=== PATIENT | male | born 1955 | race Caucasian/White ===

== ENCOUNTER → 2019-07-11 12:58 | Outpatient (CLI) | payer MEDICARE, SELFPAY ==
[2019-07-11 14:18] LABS: Alanine Aminotransferase 47 IU/L (<50); Albumin 4.9 g/dL (3.5-5.0); Albumin Globulin Ratio 1.4 (1.0-2.8); Alkaline Phosphatase 61 U/L (38-126); Aspartate Aminotransferase 37 IU/L (17-59); Bilirubin Total 0.7 mg/dL (0.2-1.3); Blood Urea Nitrogen 15 mg/dL (9-20); Calcium 9.7 mg/dL (8.4-10.2); Carbon Dioxide 27 mmol/L (22-32); Chloride 103 mmol/L (98-107); Cholesterol 216 mg/dL (140-199); Estimated Glomerular Filt Rate > 60.0 mL/min (>60); Globulin 3.4 g/dL (1.7-4.1); Glucose 102 mg/dL (80-110); HDL Cholesterol 47 mg/dL (40-60); HEMOLYSIS < 15 (0-50); LDL Cholesterol Calculated 153 mg/dL (<100); Potassium 4.8 mmol/L (3.4-5.1); Sodium 139 mmol/L (137-145); Total Protein 8.3 g/dL (6.3-8.2); Triglycerides 80 mg/dL (35-150)
[2019-07-11 14:39] LABS: Add Manual Diff / Slide Review NO; Basophils Absolute Auto 0 /uL (0-100); Basophils Percent Auto 0.8 % (0-2); Eosinophils Absolute Auto 100 /uL (0-450); Eosinophils Percent Auto 2.3 % (2-4); Lymphocytes Absolute Auto 1300 /uL (1100-4500); Lymphocytes Percent Auto 26.5 % (25-40); Monocytes Absolute Auto 500 /uL (0-900); Monocytes Percent Auto 10.1 % (3-14); Neutrophils Absolute Auto 3000 /uL (1500-7000); Neutrophils Percent Auto 60.3 % (50-75); Platelet Count 150 X10^3/uL (150-400); White Blood Cell Count 5.1 X10^3/uL (4.5-11.0)
[2019-07-11 14:40] LABS: Hematocrit 47.7 % (41-53); Hemoglobin 16.6 g/dL (13.5-17.5); Mean Corpuscular HGB Conc 34.9 % (30-36); Mean Corpuscular Hemoglobin 32.4 PG (26-34); Red Blood Cell Count 5.13 X10^6/uL (4.5-5.9); Red Cell Distribution Width 12.8 % (11.6-14.8)
[2019-07-11 14:49] LABS: Prostate Specific Antigen 1.26 ng/mL (0.10-4.00)
[2019-07-11 16:32] LABS: Vitamin D 25 Hydroxy (D3) 38.1 ng/mL (30.0-100.0)
== END ==
PROVIDERS: Family Provider Registered Nurse Orthopedic; PCP Family Medicine; Referring Provider Family Medicine; Visit Provider Family Medicine
DX: Z12.11 Encounter for screening for malignant neoplasm of colon (principal); Z12.5 Encounter for screening for malignant neoplasm of prostate; Z13.220 Encounter for screening for lipoid disorders; Z13.29 Encounter for screening for other suspected endocrine disorder; E55.9 Vitamin D deficiency, unspecified
CPT/HCPCS: 36415; 80053; 80061; 82306; 84153; 84443; 85025

== ENCOUNTER → 2019-07-17 12:34 | Outpatient (ROUT) | payer MEDICARE, SELFPAY ==
[2019-07-18 09:36] LABS: Fecal Immunochemical Test Positive (Negative)
== END ==
PROVIDERS: Family Provider Registered Nurse Orthopedic; PCP Family Medicine; Visit Provider Family Medicine
DX: Z12.11 Encounter for screening for malignant neoplasm of colon (principal); Z12.5 Encounter for screening for malignant neoplasm of prostate; Z13.220 Encounter for screening for lipoid disorders; Z13.29 Encounter for screening for other suspected endocrine disorder; E55.9 Vitamin D deficiency, unspecified
CPT/HCPCS: 82274

== ENCOUNTER → 2022-02-09 15:24 | Outpatient (CLI) | payer MEDICARE, SELFPAY ==
[2022-02-09 16:30] LABS: COVID19 -Nasal RAPID Negative (Negative)
== END ==
PROVIDERS: Family Provider Registered Nurse Orthopedic; PCP Family Medicine; Visit Provider Surgery
DX: Z01.812 Encounter for preprocedural laboratory examination (principal); Z20.822 Contact with and (suspected) exposure to COVID-19
CPT/HCPCS: 87635; C9803

== ENCOUNTER 2022-02-10 08:11 | Day surgery (SDC) | payer MEDICARE, SELFPAY ==
[2022-02-10] VITALS (7 sets, daily range): BP systolic 101–180; BP diastolic 61–93; PULSE 66–97; RESP 13–17; TEMP 36.1–36.7; O2SAT 95–99; BMI 28.8
--- NOTE | 2022-02-10 | PATH_ITS ---
[facility] Accession Number: [id number] No. of containers..03 Tissue . 01 Material submitted: . PART A: sigmoid colon - 25 CM SIGMOID POLYP PART B: colon - 60CM COLON POLYP PART C: colon - MID-TRANSVERSE COLON POLYP . 01 Diagnosis: A. Sigmoid Colon Polyp at 25 cm, Biopsy: Tubular adenoma. . B. Colon Polyp at 60 cm, Biopsy: Tubular adenoma. . C. Mid Transverse Colon Polyp, Biopsy: Tubular adenoma. MR 02/17/2022 1106 Local . 01 Electronically signed: . Kendal Mcguire MD, Pathologist NPI- [id number] . 01 Gross description: . Part A: 25 CM SIGMOID POLYP: Received in formalin are 3 fragment(s) of beauchamp, soft tissue measuring 0.4 x 0.3 x 0.3 cm to 0.7 x 0.7 x 0.6 cm submitted entirely in 1 cassette(s) Part B: 60CM COLON POLYP: Received in formalin are 2 fragment(s) of beauchamp, soft tissue measuring 0.5 x 0.4 x 0.4 cm to 0.7 x 0.6 x 0.6 cm submitted entirely in 1 cassette(s) Part C: MID-TRANSVERSE COLON POLYP: Received in formalin are 3 fragment(s) of beauchamp, soft tissue measuring 0.1 x 0.1 x 0.1 cm to 0.3 x 0.2 x 0.2 cm submitted entirely in 1 cassette(s) /ANANT 02/15/2022 2210 Local . 01 Pathologist provided ICD-10: D12.5, D12.3, D12.6 . 01 CPT . 091039, [id number], [id number] Specimen Comment: A courtesy copy of this report has been sent to [phone], [phone] Specimen Comment: [id number] Performed at: 01 [facility] [address] [facility] [address] [facility], [place], [place] [id number] MD Franklin Zuñiga MD Phone: [phone]
[2022-02-10] MEDS: LACTATED RINGERS 1,000 ML 84 ML IV (08:44)
--- NOTE | 2022-02-10 09:18 | PM.HP.1 ---
History of Present Illness History of Present Illness Date Patient Seen: 02/10/22 Time Patient Seen: 09:18 Chief complaint: SCREENING COLONOSCOPY Narrative: h/o colon polyps, last scope over 10 years ago. No symptoms. Patient History Medical History Chronic pain syndrome (Unknown) Dyslipidemia (Unknown) Erectile dysfunction (Unknown) Foot joint stiffness, bilateral Foot pain, left (Unknown) H/O methicillin resistant Staphylococcus aureus (Unknown) Positive FIT (fecal immunochemical test) Segmental and somatic dysfunction of lower extremity Vitamin D deficiency Family & Social History Social History: household members significant other Tobacco & Substance use: Tobacco type cigarettes Smoking Status Current some day smoker alcohol intake current alcohol intake frequency 0-2 drinks per day Substance Use Type marijuana Meds Home Medications and Allergies Home Medications Medication Instructions Recorded Confirmed Type Handicap placard #1 ea 07/11/19 08/08/19 Rx diazepam 5 mg tablet (Valium) 5 mg PO BID PRN anxiety #30 tabs 12/29/21 02/10/22 Rx hydrocodone 5 mg-acetaminophen 325 1 tab PO Q4-6H PRN pain #30 tabs 12/29/21 02/10/22 Rx mg tablet tramadol 50 mg tablet 50 mg PO Q6H PRN pain #240 tabs 12/29/21 02/10/22 Rx zolpidem 10 mg tablet 10 mg PO BEDTIME PRN insomnia #30 12/29/21 02/10/22 Rx tabs sodium,potassium,mag sulfates 17.5 See Rx Instructions PO .COMPLEX 02/09/22 02/10/22 Rx gram-3.13 gram-1.6 gram oral soln #354 mL (Suprep Bowel Prep Kit) Allergies Allergy/AdvReac Type Severity Reaction Status Date / Time codeine [CODEINE] Allergy Unknown Verified 02/10/22 08:45 Review of Systems Review of Systems ROS: Yes All systems reviewed with the patient and are negative except as otherwise documented Exam Vital Signs (past 8 hours): - 02/10/22 08:21 Temperature 97 F L Pulse Rate 97 H Respiratory Rate 16 Blood Pressure 180/93 H Pulse Oximetry 97 Oxygen Delivery Method Room Air Oxygen Delivery Method Room Air Const General: cooperative and comfortable HENMT Head: normal to inspection, normocephalic and atraumatic Eyes General: appearance normal, both eyes and all related structures Sclera: sclerae normal Neck Neck: trachea midline Chest Chest: normal inspection of the chest Resp Effort & Inspection: normal respiratory effort and able to speak in complete sentences Cardio Rate: regular rate Rhythm: regular rhythm GI Palpation: soft Skin General: atrophy Wounds: no wounds Neuro General: patient alert, patient awake and patient oriented x3 Speech: speech normal Psych Appearance: grossly normal Mental Status: mental status grossly normal Judgment: judgment good Assessment & Plan Assessment & Plan narrative: H/o colon polyps. Plan: colonoscopy with MAC COVID-19 COVID-19 status: Negative Time Spent With Patient Time with patient: less than 30 minutes Critical Care time: I spent a total of [] minutes of critical care time on this patient's care today; this time is exclusive of procedural time.
--- NOTE | 2022-02-10 09:59 | PM.OP.COLON ---
Operative Date/Time/Diagnoses Date of procedure: 02/10/22 Time of procedure: 09:59 Pre-op diagnosis: History of colon polyps Post-op diagnosis: same Procedure & Clinicians Study performed: Colonoscopy with hot snare and cold forceps biopsies along with tattoo of the transverse colon polyp Same procedure as scheduled: Yes Indications: History of colon polyps Surgeon: Antonina German Procedure Notes Procedure in detail: Preop diagnosis: History of colon polyps Postop diagnosis: Same Operative procedure: Colonoscopy with hot snare polypectomy and cold forceps biopsy. Tattoo of transverse colon polyp Anesthetic: Mac Surgeon: Angela German MD Findings: Large elongated 1.5 cm polyp at 25 cm in the rectosigmoid region. A 1 cm polyp at the 60 cm, splenic flexure. Both taken with hot snare Sessile polyp transverse colon associated with tattoo taken with cold forceps biopsy. Spans 25% of the lumen Procedure: Patient placed in a lateral position. Rectal exam performed showing normal tone no masses. Colonoscope inserted in the rectum advanced to ileocecal valve with minimal difficulty. Insufflation and extraction of the scope and the above findings. Retroflex was included. Impression: 3 polyps all concerning for potential dysplasia versus cancer. Transverse tattoo was of a sessile polyp on a valve encompassing about 20-25% of the lumen of the colon. Plan: Repeat colonoscopy in 3 years, await for pathology results Findings: polyp(s) (Described in findings) Specimen(s): other (3 colon polyps) Complications: none Post-procedure Recommendations: Colonoscopy in 3 years Follow up: as needed Disposition: PACU
== END 2022-02-10 10:47 | disposition home or self-care (01) ==
PROVIDERS: Family Provider Registered Nurse Orthopedic; PCP Family Medicine; Referring Provider Surgery; Visit Provider Surgery
PROC: 0DJD8ZZ Inspection of Lower Intestinal Tract, Via Natural or Artificial Opening Endoscopic (ICD-10-PCS; CPT 45378; principal; 2022-02-10 09:15)
DX: Z12.11 Encounter for screening for malignant neoplasm of colon (principal); Z86.010 Personal history of colon polyps; D12.5 Benign neoplasm of sigmoid colon; D12.3 Benign neoplasm of transverse colon; D12.6 Benign neoplasm of colon, unspecified
CPT/HCPCS: 45385; 45380; 45381

== ENCOUNTER → 2022-12-20 10:16 | Outpatient (CLI) | payer MEDICARE, SELFPAY ==
[2022-12-20 11:02] LABS: Hematocrit 45.8 % (41-53); Hemoglobin 15.7 g/dL (13.5-17.5); Mean Corpuscular HGB Conc 34.2 % (30-36); Mean Corpuscular Hemoglobin 32.4 PG (26-34); Mean Corpuscular Volume 94.7 fL (80-100); Platelet Count 168 X10^3/uL (150-400); Red Blood Cell Count 4.84 X10^6/uL (4.5-5.9); Red Cell Distribution Width 12.9 % (11.6-14.8); White Blood Cell Count 4.9 X10^3/uL (4.5-11.0)
[2022-12-20 12:55] LABS: Alanine Aminotransferase 51 IU/L (<50); Albumin 4.7 g/dL (3.5-5.0); Albumin Globulin Ratio 1.6 (1.0-2.8); Alkaline Phosphatase 61 U/L (38-126); Aspartate Aminotransferase 39 IU/L (17-59); BUN Creatinine Ratio 16.1 (6-22); Bilirubin Total 0.8 mg/dL (0.2-1.3); Blood Urea Nitrogen 15 mg/dL (9-20); Calcium 9.9 mg/dL (8.4-10.2); Carbon Dioxide 30 mmol/L (22-32); Chloride 99 mmol/L (98-107); Cholesterol 232 mg/dL (140-199); Estimated Glomerular Filt Rate > 60 mL/min (>60); Glucose 98 mg/dL (80-110); HDL Cholesterol 63 mg/dL (40-60); HEMOLYSIS < 15 (0-50); LDL Cholesterol Calculated 141 mg/dL (<100); Potassium 4.9 mmol/L (3.4-5.1); Sodium 137 mmol/L (137-145); Total Protein 7.7 g/dL (6.3-8.2); Triglycerides 139 mg/dL (35-150)
[2022-12-20 13:19] LABS: Prostate Specific Antigen Scrn 1.24 ng/mL (0.1-4.0)
[2022-12-22 11:09] LABS: HEMOLYSIS < 15 (0-50); Iron 171 ug/dL (49-181)
[2022-12-22 11:21] LABS: Percent Iron Saturation 48 % (20-50); Total Iron Binding Capacity 355 ug/dL (261-462); Transferrin 296 mg/dL (206-381)
== END ==
PROVIDERS: Family Provider Registered Nurse Orthopedic; PCP Family Medicine; Referring Provider Family Medicine; Visit Provider Family Medicine
DX: E78.5 Hyperlipidemia, unspecified (principal); Z12.5 Encounter for screening for malignant neoplasm of prostate; E55.9 Vitamin D deficiency, unspecified; F11.90 Opioid use, unspecified, uncomplicated
CPT/HCPCS: 36415; 80053; 80061; 82306; 83540; 83550; 85027; G0103

== ENCOUNTER → 2024-07-19 10:13 | Outpatient (CLI) | payer MEDICARE, SELFPAY ==
[2024-07-19 11:03] LABS: Add Manual Diff / Slide Review NO; Basophils Absolute Auto 0 /uL (0-100); Basophils Percent Auto 0.6 % (0-2); Eosinophils Absolute Auto 100 /uL (0-450); Eosinophils Percent Auto 1.5 % (2-4); Hematocrit 46.4 % (41-53); Hemoglobin 16.3 g/dL (13.5-17.5); Lymphocytes Absolute Auto 1200 /uL (1100-4500); Lymphocytes Percent Auto 23.9 % (25-40); Mean Corpuscular HGB Conc 35.2 % (30-36); Mean Corpuscular Hemoglobin 33.3 PG (26-34); Mean Corpuscular Volume 94.5 fL (80-100); Monocytes Absolute Auto 500 /uL (0-900); Monocytes Percent Auto 8.9 % (3-14); Neutrophils Absolute Auto 3400 /uL (1500-7000); Neutrophils Percent Auto 65.1 % (50-75); Platelet Count 151 X10^3/uL (150-400); Red Blood Cell Count 4.91 X10^6/uL (4.5-5.9); Red Cell Distribution Width 13.7 % (11.6-14.8); White Blood Cell Count 5.2 X10^3/uL (4.5-11.0)
[2024-07-19 11:28] LABS: Alanine Aminotransferase 68 IU/L (<50); Albumin 4.9 g/dL (3.5-5.0); Albumin Globulin Ratio 1.6 (1.0-2.8); Alkaline Phosphatase 71 U/L (38-126); Aspartate Aminotransferase 53 IU/L (17-59); BUN Creatinine Ratio 14.3 (6-22); Bilirubin Total 0.8 mg/dL (0.2-1.3); Blood Urea Nitrogen 13 mg/dL (9-20); Calcium 9.5 mg/dL (8.4-10.2); Carbon Dioxide 26 mmol/L (22-32); Chloride 101 mmol/L (98-107); Cholesterol 248 mg/dL (140-199); Estimated Glomerular Filt Rate > 60 mL/min (>60); Glucose 103 mg/dL (70-99); HDL Cholesterol 56 mg/dL (40-60); HEMOLYSIS < 15 (0-50); LDL Cholesterol Calculated 164 mg/dL (<100); Potassium 4.9 mmol/L (3.4-5.1); Sodium 138 mmol/L (137-145); Total Protein 7.9 g/dL (6.3-8.2); Triglycerides 138 mg/dL (35-150)
[2024-07-19 11:42] LABS: Vitamin D 25 Hydroxy (D3) 56.4 ng/mL (30.0-100.0)
[2024-07-19 11:53] LABS: Prostate Specific Antigen Scrn 1.23 ng/mL (0.1-4.0)
== END ==
PROVIDERS: Family Provider Registered Nurse Orthopedic; PCP Family Medicine; Referring Provider Family Medicine; Visit Provider Family Medicine
DX: E55.9 Vitamin D deficiency, unspecified (principal); E78.2 Mixed hyperlipidemia; Z12.5 Encounter for screening for malignant neoplasm of prostate
CPT/HCPCS: 36415; 80053; 80061; 82306; 85025; G0103

== ENCOUNTER → 2024-07-25 16:54 | Outpatient (CLI) | payer MEDICARE, SELFPAY ==
[2024-07-25 17:54] LABS: C-Reactive Protein Quant < 0.5 mg/dL (<1.0)
[2024-07-25 18:13] LABS: Erythrocyte Sedimentation Rate 2 MM/HR (0-15)
[2024-07-27 04:36] LABS: Homocysteine 24.3 umol/L (0.0-17.2)
== END ==
PROVIDERS: PCP Family Medicine; Referring Provider Family Medicine; Visit Provider Family Medicine
DX: E78.2 Mixed hyperlipidemia (principal); Z91.89 Other specified personal risk factors, not elsewhere classified
CPT/HCPCS: 36415; 83090; 85651; 86140